=== PATIENT | female | born 1995 ===

== ENCOUNTER 2016-06-24 11:19 | Emergency (ER) | payer OTHER ==
[2016-06-24] MEDS ORDERED: CYCLOBENZAPRINE HCL 10 MG TABLET PO ONE (12:22)
[2016-06-24] MEDS ORDERED: KETOROLAC TROMETHAMINE 30 MG/ML VIAL ONE (12:22)
--- NOTE | 2016-06-24 13:40 | MRI REPORT ---
HISTORY: Fall with injury and pain radiating to the right leg COMPARISON: None TECHNIQUE: Multiplanar multi sequential imaging of the lumbar spine obtained without IV gadolinium. FINDINGS: Alignment: Vertebral body height and alignment are maintained. Marrow signal: No marrow signal abnormality. Spinal cord: No cord signal abnormality. The conus terminates at L1. Intervertebral discs: Normal disc height and signal. Axial images demonstrate the following: L1-L2: No disc herniation, foraminal narrowing, or spinal stenosis. L2-L3: No disc herniation, foraminal narrowing, or spinal stenosis. L3-L4: No disc herniation, foraminal narrowing, or spinal stenosis. L4-L5: No disc herniation, foraminal narrowing, or spinal stenosis. L5-S1: No disc herniation, foraminal narrowing, or spinal stenosis. IMPRESSION: Unremarkable lumbar spine MRI. Final Electronic Signature: This report was electronically signed by Joaquin Cifuentes MD on 06/24/2016 1:38 PM. fartun /
--- NOTE | 2016-06-24 15:36 | ER PHYSICIAN DOCUMENTATION ---
Physician Documentation [facility] Name:Bree Gallo Age:21 yrs Sex:Female :1995 Arrival Date:06/24/2016 Time:11:19 Bed6 Private MD: Robbin Skelton Disposition: 06/24/16 15:02 Discharged to Home/Self Care. Impression: Acute Back Pain. - Condition is Good. - Discharge Instructions: BACK PAIN (Acute or Chronic), BACK SPASM, No Trauma. - Medical Reconciliation form form. - Follow up: Private Physician; When: 4- 6 days; Reason: Recheck today's complaints, Continuance of care. - Problem is new. - Symptoms have worsened. HPI: 06/24 11:24 This 21 yrs old Unknown Female presents to ER via Walk In with complaints of Fall tl1 Injury. 11:24 Details of fall: The patient fell from seated position, out of a chair. Onset: The tl1 symptom(s)/episode began/occurred suddenly, 2 day(s) ago. Associated injuries: The patient sustained injury to the low back, decreased range of motion, pain, pain with movement, tenderness. She is a very poor historian. She says she has been at [place] for about 10 days for marijuana and cocaine abuse. She says she was sitting in a chair 2 nights ago working on a computer when the chair suddenly buckled underneath her. She landed on her right buttock and lower back. She said she had some pain initially but was able to sleep. The next morning she sat up in bed and had a lot more pain when she tried to walk. The pain was then worse when she tried to walk down the hill from her cabin at [place] and is progressively worse. The time course of her symptoms or other exacerbating events are otherwise impossible to elicit, despite many attempts. She denies f/c/s. Denies IVDU. No incontinence or weakness. No prior h/o back pain or injury. Denies chance of .. Historical: - Allergies: No known drug Allergies; - Home Meds: 1. gabapentin oral 2. Melatonin Oral 3. Ibuprofen Oral - PSHx: None; - Tetanus: > 10 years. - Ebola Screening: : Patient denies exposure to infectious person. Patient denies travel to an Ebola-affected area in the 21 days before illness onset. . - Immunization history: Flu Vaccine None. - Social history: She is from [place]. 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 Patient/guardian denies using alcohol. ROS: 11:40 MS/extremity: Positive for pain, Negative for paresthesias, swelling, tingling. tl1 11:40 All other systems are negative. Exam: 11:40 Head/Face: Normocephalic, atraumatic. tl1 Neck: Trachea midline, no thyromegaly or masses palpated, and no cervical lymphadenopathy. Supple, full range of motion without nuchal rigidity, or vertebral point tenderness. No Meningismus. Chest/axilla: Normal chest wall appearance and motion. Nontender with no deformity. No lesions are appreciated. Cardiovascular: Regular rate and rhythm with a normal S1 and S2. No gallops, murmurs, or rubs. Normal PMI, no JVD. No pulse deficits. Respiratory: Lungs have equal breath sounds bilaterally, clear to auscultation and percussion. No rales, rhonchi or wheezes noted. No increased work of breathing, no retractions or nasal flaring. 11:40 Abdomen/GI: Soft, non-tender, with normal bowel sounds. No distension or tympany. No tl1 guarding or rebound. No evidence of tenderness throughout. 11:40 Constitutional: The patient appears alert, awake, well developed, well hydrated, well groomed, well nourished, anxious, uncomfortable. 11:40 Back: pain, that is moderate, of the Right>>left lower thoracic and lumbar paraspinous muscle TTP . No midline or CVA tenderness. ROM severely limited with flexion or extension while standing.. 11:40 Back: Straight leg raises: right lower extremity does not illicit pain, left lower extremity does not illicit pain. 11:40 Musculoskeletal/extremity: Extremities: grossly normal except: noted in the right gluteus marlene: decreased ROM, tenderness, ROM: 11:40 Neuro: Orientation: is normal, Mentation: is normal, Memory: is normal, Motor: is normal, moves all fours, strength is 5/5 in the right leg and left leg, Sensation: light touch sense is normal, Deep tendon reflexes are 1 (trace) + in the right patellar, right Achilles, left patellar and left Achilles. Vital Signs: 11:30 BP 111 / 72; Pulse 100; Resp 18; Pulse Ox 96% on R/A; Weight 65.32 kg; Height 5 ft. 4 lb in. (162.56 cm); Pain 3/10; 13:41 BP 90 / 50; Pulse 86; Resp 14; Pain 2/10; lb 15:23 BP 104 / 74; Pulse 80; Resp 14; Temp 98.6; Pain 2/10; lb 11:30 Body Mass Index 24.72 (65.32 kg, 162.56 cm) lb MDM: 11:41 Patient medically screened. tl1 11:41 Patient medically screened. tl1 12:00 Differential diagnosis: strain, bulging disc, epidural abscess, osteomyelitis, tl1 discitis, muscle spasm. Data reviewed: vital signs, nurses notes, radiologic studies, MRI, and as a result, I will discharge patient. Counseling: I had a detailed discussion with the patient and/or guardian regarding: the historical points, exam findings, and any diagnostic results supporting the discharge/admit diagnosis, radiology results, the need for outpatient follow up, with the patient's primary care provider, to return to the emergency department if symptoms worsen or persist or if there are any questions or concerns that arise at home. Medication response: flexeril. Response to treatment: the patient's symptoms have markedly improved after treatment, and as a result, I will discharge patient. ED course: After the toradol and flexeril, she turned over onto her stomach and was sleeping soundly. It took some effort to awaken her and she sat up, stood up, and was seemingly much improved. At that point she was not interested in hearing what I had to say about her (normal) MRI, and asked to go. At the time of d/c, she was again limping on her right leg and asking for pain medications. I recommended combining ibuprofen 400 mg QID and tylenol, 1 gm QID, and f/u with a local PCP, prior to her d/c from [place].. 15:00 Special discussion: Her MRI is completely normal. The cause of her pain is not at all tl1 clear, and out of proportion to her history and physical findings. Muscle spasm could be part of this. She seemed to get better with flexeril. I will leave it to her doctors at [place] to decide if a muscle relaxant would be helpful and congruent with her efforts to get herself off of mind altering drugs.. 06/24 13:07 Order name: LUMBAR SPINE W/O [id number] EDMS 06/24 13:41 Order name: LUMBAR SPINE W/O [id number]; Complete Time: 14:56 EDMS 06/24 17:59 Interpretation: NORMAL. NO APPARENT PATHOLOGY. SEE RADIOLOGIST NOTE. tl1 Dispensed Medications: 12:13 Drug: Toradol 30 mg; Route: IM; Site: right gluteus; lb 13:40 Follow up: Response: Pain is decreased lb 12:14 Drug: Flexeril 10 mg; Route: PO; lb 13:41 Follow up: Response: Pain is decreased lb Signatures: Robbin Wellington MD MD tl1 Lakeshia Cruz lb
--- NOTE | 2016-06-24 15:36 | ER NURSING DOCUMENTATION ---
Nurse's Notes [facility] Name:Bree Gallo Age:21 yrs Sex:Female :1995 Arrival Date:06/24/2016 Time:11:19 Bed6 Private MD: Diagnosis:Acute Back Pain Presentation: 06/24 11:27 Presenting complaint: Patient states: chair pt was sitting collapsed, fell onto lb buttocks. c/o right lower back pain and buttock pain. Transition of care: [place]. Notified ED Physician of Dr. Wellington notified. 11:27 Acuity: BHUMI 4 lb 11:27 Method Of Arrival: Walk In Triage Assessment: 11:30 General: Appears uncomfortable, Behavior is appropriate for age, cooperative. Pain: lb Complains of pain in right lower back Pain does not radiate. Pain currently is 3 out of 10 on a pain scale. Historical: - Allergies: No known drug Allergies; - Home Meds: 1. gabapentin oral 2. Melatonin Oral 3. Ibuprofen Oral - PSHx: None; - Tetanus: > 10 years. - Ebola Screening: : Patient denies exposure to infectious person. Patient denies travel to an Ebola-affected area in the 21 days before illness onset. . - Immunization history: Flu Vaccine None. - Social history: She is from [place]. 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 Patient/guardian denies using alcohol. Screenin:31 Infectious Disease Risk None. Abuse screen: Denies threats or abuse. Denies injuries lb from another. Nutritional screening: No deficits noted. Assessment: 11:31 See Triage Assessment done by same RN. lb Vital Signs: 11:30 BP 111 / 72; Pulse 100; Resp 18; Pulse Ox 96% on R/A; Weight 65.32 kg; Height 5 ft. 4 lb in. (162.56 cm); Pain 3/10; 13:41 BP 90 / 50; Pulse 86; Resp 14; Pain 2/10; lb 15:23 BP 104 / 74; Pulse 80; Resp 14; Temp 98.6; Pain 2/10; lb 11:30 Body Mass Index 24.72 (65.32 kg, 162.56 cm) lb ED Course: 11:20 Patient arrived in ED. liane 11:22 Robbin Wellington MD is Attending Physician. liane 11:27 Lakeshia Cruz is Primary Nurse. lb 11:28 Triage completed. lb 11:31 Valuables Remains with patient. lb 12:17 Patient moved to MRI. dylon 13:07 LUMBAR SPINE W/O [id number] In Process Unspecified. EDMS 13:40 Patient moved back from MRI. dylon Administered Medications: 12:13 Drug: Toradol 30 mg; Route: IM; Site: right gluteus; lb 13:40 Follow up: Response: Pain is decreased lb 12:14 Drug: Flexeril 10 mg; Route: PO; lb 13:41 Follow up: Response: Pain is decreased Outcome: 15:02 Discharge ordered by . tl1 15:23 Discharged to [facility] 15:23 Condition: stable 15:23 Report given to Clair FERNANDEZ 15:23 Discharge Assessment: Patient awake, alert and oriented x 3. No cognitive and/or functional deficits noted. Patient verbalized understanding of disposition instructions. 15:23 Instructed on discharge instructions, follow up and referral plans. 15:35 Patient left the ED. lb 05 08:25 Discharge F/U Call: Spoke with: other: Name: RN at [facility] What is the one lp thing you feel we could do to improve? Patient's answer: RN states patient symptoms persist but patient seems better today Signatures: Dispatcher [employer] Pily Aponte RN RN lp Davies, Jackie, Sonali Jackson jd, Tom, MD MD tl1 Lakeshia Cruz
== END 2016-06-24 15:36 | disposition home or self-care (01) ==
LOC: EEVIPCON 11:19 → ER 11:19
DX: M54.6 Pain in thoracic spine (principal); M54.5 Low back pain; W07.XXXA Fall from chair, initial encounter; Y92.199 Unspecified place in other specified residential institution as the place of occurrence of the external cause; Y93.C1 Activity, computer keyboarding; F12.10 Cannabis abuse, uncomplicated; F14.10 Cocaine abuse, uncomplicated; F17.210 Nicotine dependence, cigarettes, uncomplicated; Z79.899 Other long term (current) drug therapy
CPT/HCPCS: 72148; 96372; 99284; J1885